=== PATIENT | female | born 1925 | race Caucasian/White ===

== ENCOUNTER → 2016-05-28 | Outpatient (CLI) | payer OTHER ==
[~2016-05-28] MED LIST: ACET1TAB84 PO; APR50 PO; ASPI81TA28 PO; CHLO0.1222 PO; DBT/5 PO; ENAL20TA PO; FRS/40 PO; GLYB5TAB8 PO; LANS30CA12 PO; LEVO50TA PO; MELA1TAB5 PO; METF-384 PO; METO25TA56 PO; MULT-506 PO; NTRS PO; PRLSR20 PO; SIMV10TA2 PO; TRAM-10 PO; WARF3TAB PO; WARF4TAB PO
--- NOTE | 2016-05-28 13:01 | DIAGNOSTIC IMAGING REPORT ---
ABDOMEN AND PELVIS CT WITH ORAL CONTRAST CT DOSE: 941.92 mGy.cm HISTORY: ABDOMINAL MASS AND PAIN, ORAL ONLY , IV CONTRAST ALLERGY TECHNIQUE: Multiaxial CT images of the abdomen and pelvis were performed following the use of oral contrast. COMPARISON STUDY: None. FINDINGS: No renal, ureteral or bladder calculi are present. There is no hydronephrosis. Mild symmetric perinephric infiltration is unchanged. Unenhanced images of the liver, spleen, left adrenal gland and pancreas are unremarkable. Stable 1 cm right benign adrenal adenoma. There is no biliary ductal dilatation status post cholecystectomy. There is no evidence for a bowel obstruction. There is a prior ventral hernia repair with mesh. No evidence for a ventral hernia. Note is made of extensive sigmoid diverticulosis without evidence for acute diverticulitis. No abdominal or pelvic lymphadenopathy is present. IMPRESSION: 1. Anterior abdominal wall mesh for prior ventral hernia repair. No evidence for ventral hernia at this time. 2. Sigmoid diverticulosis without evidence for acute diverticulitis. 3. No evidence for bowel obstruction. Electronically signed by: Yonathan Cr M.D. 05/28/2016 12:59 PM Dictated Date/Time: 05/28/2016 12:47 PM
== END | disposition home or self-care (01) ==
LOC: C.CTS 11:55
PROVIDERS: ATTEND Family Medicine
DX: R10.9 Unspecified abdominal pain (principal); R19.00 Intra-abdominal and pelvic swelling, mass and lump, unspecified site

== ENCOUNTER 2016-09-06 09:33 | Emergency (ER) | payer OTHER ==
[~2016-09-06] VITALS: Ht 165.1 cm; Wt 93.1 kg
[~2016-09-06 09:33] MED LIST changes: -CHLO0.1222 PO; -GLYB5TAB8 PO; -PRLSR20 PO
[2016-09-06 09:44] VITALS: TEMP 37.2; Ht 165.1 cm; Wt 93.1 kg
--- NOTE | 2016-09-06 10:21 | DIAGNOSTIC IMAGING REPORT ---
CT SCAN OF THE BRAIN WITHOUT IV CONTRAST CLINICAL HISTORY: Fall with head injury. COMPARISON STUDY: CT of the brain dated 05/13/2015. TECHNIQUE: Unenhanced axial CT scan of the brain is performed from the vertex to the skull base. CT DOSE: 537.48 mGy.cm FINDINGS: Brain parenchyma: There are age-related involutional changes noting moderate subcortical and periventricular microangiopathic change. There is no hemorrhage, mass effect, or evidence of acute territorial ischemia by CT criteria. Martins-white matter is preserved. No extra-axial fluid collection is seen. Ventricles, sulci, cisterns: Prominent secondary to involutional change. Intracranial vasculature: There is atherosclerotic calcification of the cavernous carotid and vertebral arteries. Calvarium: The skeletal structures are osteopenic. There is no depressed calvarial fracture. Soft tissues: There is a left frontal scalp hematoma. Sinuses and mastoids: The visualized paranasal sinuses are clear. The mastoid air cells are well pneumatized. Orbits: The bony orbits are grossly intact. There is evidence of bilateral ocular lens surgery. IMPRESSION: 1. There is no hemorrhage, mass effect, or evidence of acute territorial ischemia by CT criteria. 2. Left frontal scalp hematoma. No depressed calvarial fracture is seen. Electronically signed by: Jaspal Smith M.D. 09/06/2016 10:20 AM Dictated Date/Time: 09/06/2016 10:18 AM
[2016-09-06] MEDS ORDERED: PRLSR20 PO (10:29)
[2016-09-06] MEDS ORDERED: GLYB5TAB8 PO (10:29)
--- NOTE | 2016-09-06 10:48 | DIAGNOSTIC IMAGING REPORT ---
RIGHT HAND 3 VIEWS CLINICAL HISTORY: Fall from sitting. Right thumb pain. FINDINGS: 3 views of the right hand are obtained. No priors the skeletal structures are osteopenic. No fracture is clearly identified. There is age indeterminant and possibly chronic posttraumatic deformity noted in the distal radial metaphysis. Moderate degenerative narrowing is seen at the radiocarpal articulation. Advanced arthritic change is noted at the first carpometacarpal joint where there is bony sclerosis, overgrowth, and subluxation. Osteoarthritic change is also seen involving the intercarpal joints, the first metacarpophalangeal joint, and the interphalangeal joints. Soft tissue swelling is noted around the wrist. IMPRESSION: 1. There is soft tissue swelling seen around the wrist with no acute fracture clearly identified. If there is clinical concern for occult fracture consider short-term radiographic follow-up. 2. There is age indeterminant and possibly chronic posttraumatic deformity seen in the distal radial metaphysis. No discrete fracture line is identified. Correlate for point tenderness at this site. Electronically signed by: Jaspal Smith M.D. 09/06/2016 10:46 AM Dictated Date/Time: 09/06/2016 10:43 AM
[2016-09-06 11:07] VITALS: BP 174/103; PULSE 77; O2SAT 96
--- NOTE | 2016-09-06 15:28 | EMERGENCY ROOM VISIT NOTE ---
ED Visit Note First contact with patient: 09:41 I have personally evaluated this patient examined her and reviewed the pertinent labs and data. I have discussed the case with Orion Glasgow, the physician medical receptionist assistant and agree with the plan. Please refer to the PA note. This patient suffered a mechanical fall when the toilet broke. She had no symptoms prior to falling she has a hematoma large hematoma left forehead above the eye. She's had no change in vision. She had no loss consciousness. She has a normal neurologic exam. She has has pain along her right hand but x-rays the hand are unremarkable. She has no findings to suggest chest abdomen or pelvis/back trauma. She is on no blood thinners. CAT scan of her head is unremarkable she feels good and would like to home with discharge her home follow up with her doctor tomorrow and return if any new problems or concerns
--- NOTE | 2016-09-15 17:47 | EMERGENCY ROOM VISIT NOTE ---
History First contact with patient: 09:41 Chief Complaint: FALL Stated Complaint: FALL/WRIST PAIN History of Present Illness The patient is a 89 year old white female who presents to the Emergency Room with complaints of right thumb pain and a left forehead hematoma after falling at home today. She states her toilet seat broke and she fell off the toilet, striking her left forehead on a sink cabinet. She is unsure what happened to her hand. There was no loss of consciousness. This was a mechanical fall. She denies any chest pain, shortness of breath, dizziness, or headache at the time of the fall. She arrives by [facility] ambulance. No nausea or vomiting. Family members accompany her today. She denies any pain in her hips, knees, or ankles. No pain in her neck or back. No other complaints. No treatment yet. Review of Systems REVIEW OF SYSTEM: HEENT: No dizziness, visual problems, hearing loss, or tinnitus. There is no difficulty swallowing and no oral lesions are present. PULMONARY: No cough, shortness of breath, sputum production or hemoptysis. CARDIOVASCULAR: No chest pain, palpitations, shortness of breath or peripheral edema. GASTROINTESTINAL: No diarrhea, constipation, nausea, vomiting, or abdominal pain. GENITOURINARY: No dysuria, frequency, urgency or nocturia. NEUROLOGIC: No weakness, muscle tenderness, epilepsy or history of neurological problems. MUSCULOSKELETAL: No history of joint tenderness/swelling. Positive history of arthritis and arthralgias. SKIN: No rashes or lesions. PSYCHIATRIC: No history of depression or mental illness. ENDOCRINE: No history of abnormal hair growth. Positive history of diabetes and hypothyroidism Past Medical/Surgical History Medical Problems: (1) Chest pain (2) Hypertension (3) Pulmonary emboli Surgical Problems: (1) History of appendectomy (2) History of hysterectomy (3) Hx of cholecystectomy Family History Omitted due to age Social History Smoking Status: Never Smoker Smokeless Tobacco Use: No Alcohol Use: none Drug Use: none Marital Status: Housing Status: lives with family Occupation Status: retired Current/Historical Medications Scheduled Acetaminophen (Tylenol Arthritis Ext Rel), 650 MG PO TID Aspirin (Aspirin Ec), 81 MG PO HS Enalapril Maleate (Enalapril Maleate), 40 MG PO DAILY Furosemide (Lasix), 40 MG PO DAILY Glyburide (Micronase), 5 MG PO BID Levothyroxine Sodium (Synthroid), 50 MCG PO DAILY Metformin Hcl (Glucophage), 1,000 MG PO BID Metoprolol Tartrate (Lopressor) (Lopressor), 25 MG PO BID Multivitamin (Multivitamin), 1 TAB PO DAILY Omeprazole (Prilosec), 40 MG PO BID Simvastatin (Zocor), 10 MG PO QPM Scheduled PRN Melatonin (Kp Melatonin), 1 TAB PO HS PRN for Sleep Tramadol (Ultram), 50 MG PO Q6 PRN for Pain Allergies Coded Allergies: Sulfamethoxazole w/Trimethoprim (Verified Allergy, Severe, RASH, 09/06/16) fever, vasculitic type rash Iodinated Diagnostic Agents (Verified Allergy, Unknown, ANAPHYLAXIS, ) Iodine (Verified Allergy, Unknown, HX ALLERGY TO IODINATED CONTRAST MEDIA , 09/06/16) Morphine (Verified Adverse Reaction, Unknown, N/V, 09/06/16) Physical Exam Vital Signs Date Time Temp Pulse Resp B/P (MAP) Pulse Ox O2 Delivery O2 Flow Rate FiO2 09/06/16 11:07 77 18 174/103 96 09/06/16 09:44 37.2 84 18 187/65 96 Room Air Pain Rating (0-10): 4.0 Physical Exam Gen.: Well-developed, well-nourished, elderly white female, in no acute distress. Sitting on a bed. Alert and oriented. Skin: Warm and dry with fair turgor. No rashes or lesions. She has developing ecchymosis over the left eye brow. Small hematoma is present. Minor Erythema associated with an abrasion. No active bleeding. There is nothing to suture. She also has ecchymosis present around the base of her right thumb. No skin tears. The patient is not diaphoretic. HEENT: Normocephalic. Eyes PERRLA, EOMI. No conjunctiva or scleral injection. Ears TMs intact bilaterally with good light reflexes. No erythema or bulging. No hemotympanum. Canals are patent. Nares patent bilaterally without turbinate enlargement. No significant drainage. No epistaxis. Oropharynx without erythema or exudate. Uvula midline, oral mucosa moist. No lesions present. Heart: Heart RRR. No MGR. Peripheral pulses are 2+. Lungs: Lungs are clear to auscultation. No crackles rhonchi or wheezing. Good air movement. The patient is able to take a deep breath. Abdomen: Abdomen was inspected, auscultated, and palpated. Bowel sounds present x 4. Soft, nontender to palpation. No hepato-splenomegaly. No masses noted. No rebound, negative Rajput sign. No pain over McBurney's point. No CVA tenderness. Musculoskeletal: Patient has no discomfort with palpation over her cervical spine or thoracic spine. Supple motion of her shoulders and elbows. She has discomfort with palpation over the base of her thumb. No pain with palpation over the distal radius. Full range of motion of the wrist. Thumb circumduction and opposition does cause some minor discomfort at the base of the thumb. No specific pain over the anatomic snuffbox. Supple motion of her hips, knees, and ankles. No pain with log rolling of the hips. Neurologic: Cranial nerves II through XII are intact. Gross sensation is intact across the upper and lower extremities by soft touch Medical Decision & Procedures ER Provider Diagnostic Interpretation: CT scan imaging of her head was obtained today. This was read by radiology as negative for acute bleed or intracranial mass. Radiographic imaging of her right hand was also obtained. There is no evidence for fracture. This was read by radiology and reviewed by me. ED Course Patient and her family were educated regarding today's findings. Conservative care measures were discussed. CT scan imaging and radiographic imaging of the hand were obtained today. Patient was reassured that these are within normal limits. She will likely become more black and blue on her face. Apply cool compresses or ice packs to the face and hand as needed for comfort. Tylenol every 6 hours as needed for mild pain. Follow up with her PCP this week for reexamination. Return to the ED for any other concerns. Apply antibiotic ointment to her abrasion to prevent any infection. Patient was seen in conjunction with Dr. Posada, who also evaluated the patient and concurred with today's diagnosis and treatment plan. Medical Decision I do not suspect intracranial bleed, cranial fracture, cervical spine injury, long bone fracture, or cause of the fall to be related to arrhythmia, anemia, electrolyte abnormality, or dehydration. Impression Primary Impression: Head contusion Additional Impressions: Fall at home Right thumb pain Departure Information Dispostion Home / Self-Care Condition GOOD Forms HOME CARE DOCUMENTATION FORM, TYLENOL USE, IMPORTANT VISIT INFORMATION Patient Instructions My [facility] Additional Instructions Ice to any sore areas frequently over the next 3 days, then use moist heat Gentle motion daily to prevent stiffness Follow-up with your PCP as needed Return to the ED for any other concerns Apply triple antibiotic ointment to the forehead abrasion to prevent infection Problem Qualifiers Primary Impression: Head contusion Encounter type: initial encounter Contusion of head detail: periocular area Laterality: left Qualified Codes: S00.12XA - Contusion of left eyelid and periocular area, initial encounter Additional Impressions: Fall at home Encounter type: initial encounter Qualified Codes: W19.XXXA - Unspecified fall, initial encounter; Y92.099 - Unspecified place in other non-institutional residence as the place of occurrence of the external cause
== END 2016-09-06 11:07 | disposition home or self-care (01) ==
LOC: EDBD 09:33 → C.EDB 09:35
DX: S00.83XA Contusion of other part of head, initial encounter (principal); M79.644 Pain in right finger(s); I10 Essential (primary) hypertension; Z79.82 Long term (current) use of aspirin; Z79.84 Long term (current) use of oral hypoglycemic drugs; Z79.899 Other long term (current) drug therapy; Z86.711 Personal history of pulmonary embolism; W18.12XA Fall from or off toilet with subsequent striking against object, initial encounter; Y92.002 Bathroom of unspecified non-institutional (private) residence as the place of occurrence of the external cause

== ENCOUNTER 2016-10-04 16:44 | Emergency (ER) | payer OTHER ==
[~2016-10-04] VITALS: Ht 165.1 cm; Wt 92.0 kg
[~2016-10-04 16:44] MED LIST changes: -APR50 PO; -DBT/5 PO; +GLYB5TAB8 PO; -LANS30CA12 PO; -NTRS PO; +PRLSR20 PO; -WARF3TAB PO; -WARF4TAB PO
[2016-10-04 16:47] VITALS: TEMP 36.8; Ht 165.1 cm; Wt 92.0 kg
--- NOTE | 2016-10-04 17:43 | EMERGENCY ROOM VISIT NOTE ---
ED Visit Note First contact with patient: 16:57 CHIEF COMPLAINT: Bleeding tongue HISTORY OF PRESENT ILLNESS: This 89-year-old female patient presents to the emergency department name of a bleeding tongue since she bit her approximately 4 hours prior to arrival. The patient reports an initial significant amount of blood, however states within 1 hour, it had subsided. The patient states approximately 1 hour ago, she was eating candy, and while sucking on the piece of hard candy, she began tasting blood in her mouth. The patient states she has passed a few clots, and she has been unable to manage the bleeding. The patient reports throbbing pain and significant swelling on the right side of her tongue. She denies pus like drainage. The patient denies other injury or recent illness. The patient rates the pain 2/10. REVIEW OF SYSTEMS: A 6 system review of systems was performed with positives and pertinent negatives listed in the history of present illness. All other systems were reviewed and are negative. ALLERGIES: Iodine, morphine, Bactrim MEDICATIONS: Metformin, Synthroid, aspirin, metoprolol, enalapril maleate, furosemide, simvastatin, glyburide, omeprazole PMH: Diabetes, hypothyroidism, hypertension, heart failure, hyperlipidemia, GERD SOCIAL HISTORY: Lives locally with family. She denies drug, alcohol, tobacco use. PHYSICAL EXAM: VITALS: Vitals are noted on the nurse's note and reviewed by myself. Vital signs stable. GENERAL: This is an 89-year-old female, in no acute distress, nondiaphoretic, well-developed well-nourished. ORAL CAVITY: There is a 1-2mm puncture-type wound on the right side of the patient's tongue. No active bleeding at this time. There is a blood clot in place over the tongue. The patient is spitting up a mild amount of blood on examination. no avulsion or deformity or fracture to teeth. Posterior pharyngeal wall not erythematous and without exudate. EMERGENCY DEPARTMENT COURSE: She was seen and evaluated as above. I instructed the patient on using ice water to swish and spit. The patient then applied direct pressure with colds, moistened gauze. The bleeding did stop while in the emergency department. Discharge instructions were reviewed with the patient and her son at bedside. I did discuss the case with Dr. Magallanes, who is in agreement with the assessment and plan. The patient was discharged home in good condition. DIFFERENTIAL DIAGNOSIS: Laceration of tongue, puncture wound of tongue, fracture of tooth, infection, and others. DIAGNOSIS: Bleeding tongue DISCHARGE INSTRUCTIONS & TREATMENT: Please swish and spit with chlorhexidine mouth wash twice daily until the wound has healed. If you experience re-bleeding, apply ice or swish and spit with cold ice water. Apply pressure to the lesion on the tongue if you experience worsening bleeding. Keep foods lukewarm or cold. I do recommend you eat a soft diet over the next 2 -3 days until the lesion has healed. Follow-up with your primary care provider for further evaluation and management. Do not take aspirin or NSAIDs tonight to prevent rebleeding. Return to the emergency department for further evaluation if he began experiencing leading to his unable to be managed with the aforementioned treatment, vomiting blood, increased swelling, worsening pain, or drainage of pus. Problem List Medical Problems: (1) Chest pain Status: Chronic (2) Hypertension Status: Chronic (3) Pulmonary emboli Status: Resolved Surgical Problems: (1) History of appendectomy Status: Resolved (2) History of hysterectomy Status: Resolved (3) Hx of cholecystectomy Status: Resolved Current/Historical Medications Scheduled Acetaminophen (Tylenol Arthritis Ext Rel), 650 MG PO TID Aspirin (Aspirin Ec), 81 MG PO HS Chlorhexidine Gluconate (Mouth (Peridex), 15 ML PO BID Enalapril Maleate (Enalapril Maleate), 40 MG PO DAILY Furosemide (Lasix), 40 MG PO DAILY Glyburide (Micronase), 10 MG PO BID Levothyroxine Sodium (Synthroid), 50 MCG PO DAILY Metformin Hcl (Glucophage), 1,000 MG PO BID Metoprolol Tartrate (Lopressor) (Lopressor), 25 MG PO BID Multivitamin (Multivitamin), 1 TAB PO DAILY Omeprazole (Prilosec), 40 MG PO BID Simvastatin (Zocor), 10 MG PO QPM Allergies Coded Allergies: Sulfamethoxazole w/Trimethoprim (Verified Allergy, Severe, RASH, 09/06/16) fever, vasculitic type rash Iodinated Diagnostic Agents (Verified Allergy, Unknown, ANAPHYLAXIS, ) Iodine (Verified Allergy, Unknown, HX ALLERGY TO IODINATED CONTRAST MEDIA , 09/06/16) Morphine (Verified Adverse Reaction, Unknown, N/V, 09/06/16) Vital Signs Date Time Temp Pulse Resp B/P (MAP) Pulse Ox O2 Delivery O2 Flow Rate FiO2 10/04/16 16:47 36.8 94 94 Room Air Departure Information Impression Primary Impression: Laceration of tongue Dispostion Home / Self-Care Condition GOOD Prescriptions Chlorhexidine Gluconate (Mouth (PERIDEX) 0.12 % Odalis 15 ML PO BID for 30 Days, #946 ML Prov: Katerina Cool PA-C 10/04/16 Referrals Ronnie Vaughan M.D. (PCP) Patient Instructions My [facility] Additional Instructions Please swish and spit with chlorhexidine mouth wash twice daily until the wound has healed. If you experience re-bleeding, apply ice or swish and spit with cold ice water. Apply pressure to the lesion on the tongue if you experience worsening bleeding. Keep foods lukewarm or cold. I do recommend you eat a soft diet over the next 2 -3 days until the lesion has healed. Follow-up with your primary care provider for further evaluation and management. Do not take aspirin or NSAIDs tonight to prevent rebleeding. Return to the emergency department for further evaluation if he began experiencing leading to his unable to be managed with the aforementioned treatment, vomiting blood, increased swelling, worsening pain, or drainage of pus. Problem Qualifiers Primary Impression: Laceration of tongue Encounter type: initial encounter Qualified Codes: S01.512A - Laceration without foreign body of oral cavity, initial encounter
[2016-10-04] MEDS ORDERED: CHLO0.1222 PO (17:49)
[2016-10-04 18:21] VITALS: BP 137/87; PULSE 87; O2SAT 94
--- NOTE | 2016-10-06 15:54 | EMERGENCY ROOM VISIT NOTE ---
ED Visit Note First contact with patient: 16:57 HPI: bleeding tongue after biting it. PE: AFVSS, NAD NC/AT Small 0.25 cm superfical lac to right proximal, lateral aspect of tongue, without active bleeding. RRR, no murmurs CTAB Neuro: grossly intact Plan: No active bleeding. No repair required. pcp f/u. I reviewed the patient's past medical history, medications, and visit nursing notes. I discussed the case with the physician assistant signal maintainer, examined the patient, and agree with the findings and plan as documented in the physician assistants note. Problem List Medical Problems: (1) Chest pain Status: Chronic (2) Hypertension Status: Chronic (3) Pulmonary emboli Status: Resolved Surgical Problems: (1) History of appendectomy Status: Resolved (2) History of hysterectomy Status: Resolved (3) Hx of cholecystectomy Status: Resolved Current/Historical Medications Scheduled Acetaminophen (Tylenol Arthritis Ext Rel), 650 MG PO TID Aspirin (Aspirin Ec), 81 MG PO HS Chlorhexidine Gluconate (Mouth (Peridex), 15 ML PO BID Enalapril Maleate (Enalapril Maleate), 40 MG PO DAILY Furosemide (Lasix), 40 MG PO DAILY Glyburide (Micronase), 10 MG PO BID Levothyroxine Sodium (Synthroid), 50 MCG PO DAILY Metformin Hcl (Glucophage), 1,000 MG PO BID Metoprolol Tartrate (Lopressor) (Lopressor), 25 MG PO BID Multivitamin (Multivitamin), 1 TAB PO DAILY Omeprazole (Prilosec), 40 MG PO BID Simvastatin (Zocor), 10 MG PO QPM Allergies Coded Allergies: Sulfamethoxazole w/Trimethoprim (Verified Allergy, Severe, RASH, 09/06/16) fever, vasculitic type rash Iodinated Diagnostic Agents (Verified Allergy, Unknown, ANAPHYLAXIS, ) Iodine (Verified Allergy, Unknown, HX ALLERGY TO IODINATED CONTRAST MEDIA , 09/06/16) Morphine (Verified Adverse Reaction, Unknown, N/V, 09/06/16) Vital Signs Date Time Temp Pulse Resp B/P (MAP) Pulse Ox O2 Delivery O2 Flow Rate FiO2 10/04/16 18:21 87 22 137/87 94 10/04/16 16:47 36.8 94 94 Room Air Departure Information Impression Primary Impression: Laceration of tongue Dispostion Home / Self-Care Condition GOOD Prescriptions Chlorhexidine Gluconate (Mouth (PERIDEX) 0.12 % Odalis 15 ML PO BID for 30 Days, #946 ML Prov: Katerina Cool PA-C 10/04/16 Referrals Ronnie Vaughan M.D. (PCP) Forms WORK / SCHOOL INSTRUCTIONS, HOME CARE DOCUMENTATION FORM, IMPORTANT VISIT INFORMATION Patient Instructions My [facility] Additional Instructions Please swish and spit with chlorhexidine mouth wash twice daily until the wound has healed. If you experience re-bleeding, apply ice or swish and spit with cold ice water. Apply pressure to the lesion on the tongue if you experience worsening bleeding. Keep foods lukewarm or cold. I do recommend you eat a soft diet over the next 2 -3 days until the lesion has healed. Follow-up with your primary care provider for further evaluation and management. Do not take aspirin or NSAIDs tonight to prevent rebleeding. Return to the emergency department for further evaluation if he began experiencing leading to his unable to be managed with the aforementioned treatment, vomiting blood, increased swelling, worsening pain, or drainage of pus.
== END 2016-10-04 18:23 | disposition home or self-care (01) ==
LOC: C.EDB 16:45 → C.EDD 18:23
DX: S01.512A Laceration without foreign body of oral cavity, initial encounter (principal); W45.8XXA Other foreign body or object entering through skin, initial encounter; E11.9 Type 2 diabetes mellitus without complications; E03.9 Hypothyroidism, unspecified; I10 Essential (primary) hypertension; I50.9 Heart failure, unspecified; E78.5 Hyperlipidemia, unspecified; K21.9 Gastro-esophageal reflux disease without esophagitis

== ENCOUNTER 2017-05-17 18:49 | Emergency (ER) | payer OTHER ==
[~2017-05-17] VITALS: Ht 165.1 cm; Wt 92.0 kg
[~2017-05-17 18:49] MED LIST changes: -MELA1TAB5 PO; -TRAM-10 PO
[2017-05-17 19:05] VITALS: TEMP 36.9; Ht 165.1 cm; Wt 92.0 kg
[2017-05-17] MEDS ORDERED: KETOROLAC TROMETHAMINE 30 MG/ML VIAL IV STA (19:27)
[2017-05-17] MEDS ORDERED: ONDANSETRON INJ 2 MG/ML 2 ML VIAL IV STA (19:27)
[2017-05-17] MEDS ORDERED: SODIUM CHLORIDE 0.9% 1000ML 1,000 ML IV STA (19:27)
[2017-05-17 20:07] LABS: BASO % 0.6 %; BASO ABS # 0.05 K/uL (0-0.2); EOS % 4.1 %; EOS ABS # 0.33 K/uL (0-0.5); HEMATOCRIT 39.3 % (37-47); IG# 0.03 K/uL (0.00-0.02); LYMPH % 26.7 %; LYMPH ABS # 2.14 K/uL (1.2-3.4); MEAN CELL VOLUME 98.3 fL (80-100); MEAN CORPUSCULAR HEMOGLOBIN 32.5 pg (25-34); MEAN CORPUSCULAR HGB CONC 33.1 g/dl (32-36); MEAN PLATELET VOLUME 9.9 fL (7.4-10.4); MONO % 8.5 %; MONO ABS # 0.68 K/uL (0.11-0.59); NEUT % 59.7 %; PLATELET COUNT 216 K/uL (130-400); RED CELL DISTRIBUTION WIDTH CV 13.2 % (11.5-14.5); RED CELL DISTRIBUTION WIDTH SD 47.6 fL (36.4-46.3); WHITE BLOOD COUNT 8.03 K/uL (4.8-10.8)
--- NOTE | 2017-05-17 20:28 | DIAGNOSTIC IMAGING REPORT ---
ABDOMEN AND PELVIS CT WITHOUT CONTRAST CT DOSE: 1695.82 mGy.cm HISTORY: flank pain TECHNIQUE: Multiaxial CT images of the abdomen and pelvis were performed without the use of intravenous and oral contrast according to the standard department stone protocol. A dose lowering technique was utilized adhering to the principles of ALARA. COMPARISON STUDY: Abdomen and pelvis CT 05/25/1716. FINDINGS: Linear density at the lung bases favor subsegmental atelectasis. No pneumoperitoneum. No pneumatosis. There is again noted a ventral abdominal wall mesh. No evidence for recurrent abdominal wall hernia. Small left iliopsoas bursa remains unchanged. Severe spinal canal narrowing within the lumbar spine. Cholecystectomy. The unenhanced liver, spleen, and pancreas are unremarkable. Stable 1 cm right adrenal gland nodule. There is a punctate stone within the lower pole of the right kidney. No left renal calculi. Mild bilateral perinephric edema, unchanged. No ureteral stones. No hydronephrosis. The bladder is unremarkable. Prior hysterectomy. Colonic diverticulosis. Suboptimal evaluation for bowel pathology due to the lack of intravenous and oral contrast. However, there is no definite bowel wall thickening or obstruction. IMPRESSION: 1. Right-sided nephrolithiasis. No ureteral stones. No hydronephrosis. 2. Colonic diverticulosis. 3. No definite bowel wall thickening or obstruction. 4. Additional chronic findings as described above. Electronically signed by: Yonathan Cr M.D. 05/17/2017 8:26 PM Dictated Date/Time: 05/17/2017 8:17 PM
[2017-05-17 20:47] LABS: ALBUMIN 3.6 gm/dl (3.4-5.0); CALCIUM 9.1 mg/dl (8.5-10.1); CREATININE 1.13 mg/dl (0.60-1.20); POTASSIUM 4.5 mmol/L (3.5-5.1); TOTAL PROTEIN 6.9 gm/dl (6.4-8.2)
[2017-05-17] MEDS ORDERED: CEFTRIAXONE SOD INJ 1 GM ADDVIAL IV STA (21:31)
[2017-05-17] MEDS ORDERED: CIPROFLOXACIN 500 MG TAB PO STA (22:17)
[2017-05-17] MEDS ORDERED: CIPR-255 PO (22:23)
--- NOTE | 2017-05-17 22:23 | EMERGENCY ROOM VISIT NOTE ---
History Report prepared by Danyel: Chelsey Lane Under the Supervision of: Dr. Alexander Mtz D.O. First contact with patient: 19:20 Chief Complaint: FLANK PAIN Stated Complaint: PAIN IN R SIDE/BACK History of Present Illness The patient is an 89 year old female who presents to the Emergency Room with complaints of intermittent left flank pain starting 2 weeks ago. The pain became more continuous today. It wraps around to the front where the incision from her previous kidney stone is located. She currently rates her discomfort as a 6/10 in severity. The pain does not worsen with movement. She has had difficulty sleeping from the pain. She has tried taking Tylenol to no significant relief. The patient has been nauseous and dizzy with room spinning intermittently. She denies any vomiting or new weakness. She has some swelling to her legs at baseline. Source of History: patient Onset: 2 weeks ago Position: other (left flank) Symptom Intensity: 6/10 Quality: other (pain) Timing: other (persistent) Associated Symptoms: + nausea, No vomiting, No weakness Note: Pt reports dizziness. Review of Systems See HPI for pertinent positives & negatives. A total of 10 systems reviewed and were otherwise negative. Past Medical & Surgical Medical Problems: (1) Chest pain (2) Hypertension (3) Pulmonary emboli Surgical Problems: (1) History of appendectomy (2) History of hysterectomy (3) Hx of cholecystectomy Family History Omitted due to age Social History Smoking Status: Never Smoker Alcohol Use: none Drug Use: none Marital Status: Occupation Status: retired Current/Historical Medications Scheduled Aspirin (Aspirin Ec), 81 MG PO HS Enalapril Maleate (Enalapril Maleate), 40 MG PO DAILY Furosemide (Lasix), 40 MG PO DAILY Glyburide (Micronase), 5 MG PO BID Levothyroxine Sodium (Synthroid), 50 MCG PO DAILY Metformin Hcl (Glucophage), 1,000 MG PO BID Metoprolol Tartrate (Lopressor) (Lopressor), 25 MG PO BID Multivitamin (Multivitamin), 1 TAB PO DAILY Omeprazole (Prilosec), 40 MG PO BID Simvastatin (Zocor), 10 MG PO QPM Scheduled PRN Acetaminophen (Tylenol Arthritis Ext Rel), 650 MG PO TID PRN for Pain Allergies Coded Allergies: Sulfamethoxazole w/Trimethoprim (Verified Allergy, Severe, RASH, 01/05/17) fever, vasculitic type rash Iodinated Diagnostic Agents (Verified Allergy, Unknown, ANAPHYLAXIS, 01/05) Iodine (Verified Allergy, Unknown, HX ALLERGY TO IODINATED CONTRAST MEDIA , 01/05/17) Morphine (Verified Adverse Reaction, Unknown, N/V, 01/05/17) Physical Exam Vital Signs Date Time Temp Pulse Resp B/P (MAP) Pulse Ox O2 Delivery O2 Flow Rate FiO2 05/17/17 21:48 88 20 158/64 93 Room Air 05/17/17 20:24 89 20 191/87 93 Room Air 05/17/17 19:05 36.9 87 16 186/78 94 Room Air Physical Exam CONSTITUTIONAL/VITAL SIGNS: Reviewed / noted above. GENERAL: Non-toxic in appearance. INTEGUMENTARY: Warm, dry, and [place]. HEAD: Normocephalic. EYES: without scleral icterus or trauma. ENT/OROPHARYNX: clear and moist. LYMPHADENOPATHY/NECK: Is supple without lymphadenopathy or meningismus. RESPIRATORY: Lungs clear and equal. CARDIOVASCULAR: Regular rate and rhythm. GI/ABDOMEN: Soft. LLQ tenderness. No organomegaly or pulsatile mass. No rebound or guarding. Normal bowel sounds. EXTREMITIES: Warm and well perfused. BACK: Left CVA tenderness. NEUROLOGICAL: Intact without focal deficits. PSYCHIATRIC: normal affect. MUSCULOSKELETAL: Normally developed with good muscle tone. Medical Decision & Procedures ER Provider Diagnostic Interpretation: Radiology results as stated below per my review and radiologist interpretation: ABDOMEN AND PELVIS CT WITHOUT CONTRAST CT DOSE: 1695.82 mGy.cm HISTORY: flank pain TECHNIQUE: Multiaxial CT images of the abdomen and pelvis were performed without the use of intravenous and oral contrast according to the standard department stone protocol. A dose lowering technique was utilized adhering to the principles of ALARA. COMPARISON STUDY: Abdomen and pelvis CT 05/25/1716. FINDINGS: Linear density at the lung bases favor subsegmental atelectasis. No pneumoperitoneum. No pneumatosis. There is again noted a ventral abdominal wall mesh. No evidence for recurrent abdominal wall hernia. Small left iliopsoas bursa remains unchanged. Severe spinal canal narrowing within the lumbar spine. Cholecystectomy. The unenhanced liver, spleen, and pancreas are unremarkable. Stable 1 cm right adrenal gland nodule. There is a punctate stone within the lower pole of the right kidney. No left renal calculi. Mild bilateral perinephric edema, unchanged. No ureteral stones. No hydronephrosis. The bladder is unremarkable. Prior hysterectomy. Colonic diverticulosis. Suboptimal evaluation for bowel pathology due to the lack of intravenous and oral contrast. However, there is no definite bowel wall thickening or obstruction. IMPRESSION: 1. Right-sided nephrolithiasis. No ureteral stones. No hydronephrosis. 2. Colonic diverticulosis. 3. No definite bowel wall thickening or obstruction. 4. Additional chronic findings as described above. Electronically signed by: Yonathan Cr M.D. 05/17/2017 8:26 PM Dictated Date/Time: 05/17/2017 8:17 PM Laboratory Results 05/17/17 19:45 Red Blood Count 4.00, Mean Corpuscular Volume 98.3, Mean Corpuscular Hemoglobin 32.5, Mean Corpuscular Hemoglobin Concent 33.1, Mean Platelet Volume 9.9, Neutrophils (%) (Auto) 59.7, Lymphocytes (%) (Auto) 26.7, Monocytes (%) (Auto) 8.5, Eosinophils (%) (Auto) 4.1, Basophils (%) (Auto) 0.6, Neutrophils # (Auto) 4.80, Lymphocytes # (Auto) 2.14, Monocytes # (Auto) 0.68, Eosinophils # (Auto) 0.33, Basophils # (Auto) 0.05 05/17/17 19:45 Test 05/17/17 19:45 05/17/17 20:40 White Blood Count 8.03 K/uL (4.8-10.8) Red Blood Count 4.00 M/uL (4.2-5.4) Hemoglobin 13.0 g/dL (12.0-16.0) Hematocrit 39.3 % (37-47) Mean Corpuscular Volume 98.3 fL (80-100) Mean Corpuscular Hemoglobin 32.5 pg (25-34) Mean Corpuscular Hemoglobin Concent 33.1 g/dl (32-36) Platelet Count 216 K/uL (130-400) Mean Platelet Volume 9.9 fL (7.4-10.4) Neutrophils (%) (Auto) 59.7 % Lymphocytes (%) (Auto) 26.7 % Monocytes (%) (Auto) 8.5 % Eosinophils (%) (Auto) 4.1 % Basophils (%) (Auto) 0.6 % Neutrophils # (Auto) 4.80 K/uL (1.4-6.5) Lymphocytes # (Auto) 2.14 K/uL (1.2-3.4) Monocytes # (Auto) 0.68 K/uL (0.11-0.59) Eosinophils # (Auto) 0.33 K/uL (0-0.5) Basophils # (Auto) 0.05 K/uL (0-0.2) RDW Standard Deviation 47.6 fL (36.4-46.3) RDW Coefficient of Variation 13.2 % (11.5-14.5) Immature Granulocyte % (Auto) 0.4 % Immature Granulocyte # (Auto) 0.03 K/uL (0.00-0.02) Anion Gap 8.0 mmol/L (3-11) Est Creatinine Clear Calc Drug Dose 37.8 ml/min Estimated GFR () 49.9 Estimated GFR (Non- 43.1 BUN/Creatinine Ratio 31.1 (10-20) Calcium Level 9.1 mg/dl (8.5-10.1) Total Bilirubin 0.6 mg/dl (0.2-1) Direct Bilirubin 0.2 mg/dl (0-0.2) Aspartate Amino Transf (AST/SGOT) 16 U/L (15-37) Alanine Aminotransferase (ALT/SGPT) 28 U/L (12-78) Alkaline Phosphatase 64 U/L (45-117) Total Protein 6.9 gm/dl (6.4-8.2) Albumin 3.6 gm/dl (3.4-5.0) Lipase 311 U/L (73-393) Urine Color YELLOW Urine Appearance CLOUDY (CLEAR) Urine pH 5.0 (4.5-7.5) Urine Specific [place] 1.024 (1.000-1.030) Urine Protein 2+ (NEG) Urine Glucose (UA) NEG (NEG) Urine Ketones NEG (NEG) Urine Occult Blood NEG (NEG) Urine Nitrite POS (NEG) Urine Bilirubin NEG (NEG) Urine Urobilinogen NEG (NEG) Urine Leukocyte Esterase SMALL (NEG) Urine WBC (Auto) 10-30 /hpf (0-5) Urine RBC (Auto) 5-10 /hpf (0-4) Urine Hyaline Casts (Auto) 1-5 /lpf (0-5) Urine Epithelial Cells (Auto) >30 /lpf (0-5) Urine Bacteria (Auto) 4+ (NEG) Laboratory results as stated above per my review. Medications Administered Medications (Trade) Dose Ordered Sig/Sergio Route Start Time Stop Time Status Last Admin Dose Admin Sodium Chloride 1,000 ml @ 999 mls/hr Q1H1M STAT IV 05/17/17 19:27 05/17/17 20:27 DC 05/17/17 19:53 999 MLS/HR Ondansetron HCl (Zofran Inj) 4 mg NOW STAT IV 05/17/17 19:27 05/17/17 19:29 DC 05/17/17 19:53 4 MG Ketorolac Tromethamine (Toradol Inj) 15 mg NOW STAT IV 05/17/17 19:27 05/17/17 19:29 DC 05/17/17 19:53 15 MG Ceftriaxone Sodium (Rocephin Inj) 1 gm NOW STAT IV 05/17/17 21:31 05/17/17 21:32 DC 05/17/17 21:46 1 GM ED Course 1921: Previous medical records were reviewed. The patient was evaluated in room C5. A complete history and physical examination was performed. 1926: Toradol Inj 15 mg IV, Zofran Inj 4 mg IV, Sodium Chloride 1000 ml @ 999 mls/hr IV. 2130: Rocephin Inj 1 gm IV. 2219: On reevaluation, the patient is resting comfortably. I discussed the results and findings with the patient. She verbalized agreement of the treatment plan. She was discharged home. Medical Decision Differential considered: pancreatitis, hepatitis, or acute cholecystitis, AAA, UTI, pyelonephritis, kidney stones, appendicitis, diverticulitis, shingles, bowel obstruction mesenteric ischemia, intussusception,hernia. This is an 89-year-old female who presents to the ED with a chief complaint of left-sided flank pain. The patient states that she has had the symptoms off and on for the past couple of weeks although today it has become more continuous. She reports associated nausea as well as some dizziness but no vomiting. She denies anything making it better or worse. It does not appear to be worsened by movement. Her physical exam reveals an elevated blood pressure. This could be related to discomfort. The patient has tenderness to palpation of left lower quadrant as well as some left lower CVA tenderness. CT scan of the abdomen pelvis reveals no acute pathology. CBC is normal, BUN is 35 and complete metabolic panel was unremarkable. Urine suggest infection. The patient was treated with IV Toradol, IV Zofran and IV fluids. She was given IV Rocephin and p.o. Cipro. She will be discharged on Cipro. She is felt to be stable for discharge. Medication Reconcilliation Current Medication List: was personally reviewed by me Blood Pressure Screening Patient's blood pressure: Elevated blood pressure Blood pressure disposition: Elevated BP felt to be situational Impression Primary Impression: UTI (urinary tract infection) Scribe Attestation The scribe's documentation has been prepared under my direction and personally reviewed by me in its entirety. I confirm that the note above accurately reflects all work, treatment, procedures, and medical decision making performed by me. Departure Information Dispostion Home / Self-Care Prescriptions Ciprofloxacin Hcl (CIPRO) 500 Mg Tab 500 MG PO BID, #14 TAB Prov: Alexander Mtz D.O. 05/17/17 Referrals Ronnie Vaughan M.D. (PCP) Patient Instructions [facility] Additional Instructions Cipro as prescribed for UTI. Follow-up with your doctor for further care and evaluation in 1-2 days. Return to the emergency department for worsening or new symptoms or any concerns. You have been examined and treated today on an emergency basis only. This is not a substitute for, or an effort to provide, complete comprehensive medical care. It is impossible to recognize and treat all injuries or illnesses in a single emergency department visit. It is therefore important that you follow up closely with your doctor. Call as soon as possible for an appointment.
[2017-05-17 22:44] VITALS: BP 160/98; PULSE 81; O2SAT 93
== END 2017-05-17 22:47 | disposition home or self-care (01) ==
LOC: C.EDB 18:50 → C.EDC 22:47
DX: N39.0 Urinary tract infection, site not specified (principal); I10 Essential (primary) hypertension; Z86.711 Personal history of pulmonary embolism; Z87.442 Personal history of urinary calculi; Z79.82 Long term (current) use of aspirin; Z79.84 Long term (current) use of oral hypoglycemic drugs; Z88.2 Allergy status to sulfonamides; Z91.041 Radiographic dye allergy status; Z88.5 Allergy status to narcotic agent; Z88.6 Allergy status to analgesic agent

== ENCOUNTER 2017-09-29 19:22 | Emergency (ER) | payer OTHER ==
[~2017-09-29] VITALS: Ht 162.6 cm; Wt 94.0 kg
[~2017-09-29 19:22] MED LIST changes: +CIPR-255 PO
[2017-09-29 19:26] VITALS: TEMP 36.7; Ht 162.6 cm; Wt 94.0 kg
[2017-09-29] MEDS ORDERED: ONDANSETRON INJ 2 MG/ML 2 ML VIAL IV STA (19:32)
[2017-09-29] MEDS ORDERED: HYDROmorphone INJ 0.5 MG/0.5 ML SYR IV STA (19:32)
[2017-09-29] MEDS ORDERED: SODIUM CHLORIDE 0.9% 500ML 500 ML IV STA (19:32)
[2017-09-29 19:59] LABS: BASO % 0.2 %; BASO ABS # 0.02 K/uL (0-0.2); EOS % 2.6 %; EOS ABS # 0.21 K/uL (0-0.5); HEMATOCRIT 42.6 % (37-47); HEMOGLOBIN 14.3 g/dL (12.0-16.0); IG# 0.01 K/uL (0.00-0.02); LYMPH % 19.9 %; MEAN CELL VOLUME 97.7 fL (80-100); MEAN CORPUSCULAR HEMOGLOBIN 32.8 pg (25-34); MEAN CORPUSCULAR HGB CONC 33.6 g/dl (32-36); MEAN PLATELET VOLUME 9.8 fL (7.4-10.4); MONO % 6.3 %; MONO ABS # 0.51 K/uL (0.11-0.59); NEUT % 70.9 %; NEUT ABS # 5.69 K/uL (1.4-6.5); PLATELET COUNT 228 K/uL (130-400); RED CELL DISTRIBUTION WIDTH CV 13.7 % (11.5-14.5); RED CELL DISTRIBUTION WIDTH SD 48.8 fL (36.4-46.3); WHITE BLOOD COUNT 8.04 K/uL (4.8-10.8)
[2017-09-29 20:21] LABS: ALBUMIN 4.2 gm/dl (3.4-5.0); CALCIUM 9.6 mg/dl (8.5-10.1); CREATININE 1.17 mg/dl (0.60-1.20); POTASSIUM 4.7 mmol/L (3.5-5.1); TOTAL PROTEIN 7.4 gm/dl (6.4-8.2)
--- NOTE | 2017-09-29 20:24 | DIAGNOSTIC IMAGING REPORT ---
PELVIS 1 OR 2 VIEW ROUTINE CLINICAL HISTORY: Right hip pain. COMPARISON STUDY: None. FINDINGS: No fracture or dislocation within the pelvis or hips. The sacrum appears intact. 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 Metallic sutures are also seen within the abdomen. There are also moderate degenerative changes within the bilateral sacroiliac joints. IMPRESSION: 1. No fracture or dislocation within the pelvis or hips. 2. Mild to moderate osteoarthritis as described above. Electronically signed by: Yonathan Cr M.D. 09/29/2017 8:22 PM Dictated Date/Time: 09/29/2017 8:20 PM
--- NOTE | 2017-09-29 20:30 | DIAGNOSTIC IMAGING REPORT ---
LUMBAR SPINE CT CT DOSE: 669.10 mGy.cm HISTORY: lower back pain TECHNIQUE: Multiaxial CT images of the lumbar spine were performed and reformatted in the sagittal and coronal plane without the use of contrast. A dose lowering technique was utilized adhering to the principles of ALARA. COMPARISON: Lumbar spine CT 05/13/2015. FINDINGS: No fracture or subluxation. Mild disc space narrowing at L2-L3 and L4-L5, unchanged. There are endplate osteophytes seen throughout the lumbar spine. Moderate to severe facet osteoarthritis most pronounced at the lower lumbar spine is again noted. The sacrum appears intact. Paraspinal soft tissues are unremarkable. Severe central canal narrowing at L2-L3, L3-L4, L4-L5, unchanged. This is due to the disc bulges and ligamentum/facet hypertrophy. IMPRESSION: 1. No fracture or subluxation within the lumbar spine. 2. Advanced degenerative changes as described above. This is not significantly changed. Electronically signed by: Yonathan Cr M.D. 09/29/2017 8:29 PM Dictated Date/Time: 09/29/2017 8:23 PM
--- NOTE | 2017-09-29 20:57 | DIAGNOSTIC IMAGING REPORT ---
RIGHT LOWER EXTREMITY VENOUS DOPPLER HISTORY: Right leg pain. COMPARISON STUDY: Venous Doppler 07/12/2014. FINDINGS: There is normal compressibility, flow, and augmentation within the right lower extremity deep venous system. IMPRESSION: No DVT within the right lower extremity Electronically signed by: Yonathan Cr M.D. 09/29/2017 8:56 PM Dictated Date/Time: 09/29/2017 8:56 PM
[2017-09-29] MEDS ORDERED: OXYC-737 PO (21:13)
[2017-09-29] MEDS ORDERED: OXYCODONE IR HOME PACK PO ONE (21:15)
[2017-09-29 21:58] VITALS: BP 162/72; PULSE 78; O2SAT 94
--- NOTE | 2017-09-30 00:18 | EMERGENCY ROOM VISIT NOTE ---
History Report prepared by Danyel: Albert Carrero Under the Supervision of: Dr. Reid Alonzo D.O. First contact with patient: 19:25 Chief Complaint: PAIN (GENERALIZED) Stated Complaint: KNEE PAIN TO HIP History of Present Illness The patient is a 89 year old female who presents to the Emergency Room with complaints of constant right lower extremity pain that began three days ago. She rates her pain as a 10/10 in severity. The patient states that three months ago she heard a popping noise when she was moving her legs around. She reports that after, her left lower extremity became painful. The patient states that her left lower extremity pain has resolved. She reports that within the last three days, she noticed her right lower extremity has been painful. The patient states that the pain radiates into her lower back and lower abdomen. The patient states she has not been able to move much since it worsens the pain. She notes the pain is the worst on the medial aspect of her right thigh, back and tracking down through her right gluteus down the back of. The patient denies similar symptoms in the past and new numbness in leg. She reports a history of neuropathy, appendectomy, and cholecystectomy. The patient states she had two bowel movements today. Source of History: patient Onset: three days ago Position: leg (right) Symptom Intensity: 10/10 Timing: constant Modifying Factors (Worsening): movement Associated Symptoms: + abdominal pain, + back pain, No numbness Review of Systems See HPI for pertinent positives & negatives. A total of 10 systems reviewed and were otherwise negative. Past Medical & Surgical Medical Problems: (1) Chest pain (2) Hypertension (3) Pulmonary emboli Surgical Problems: (1) History of appendectomy (2) History of hysterectomy (3) Hx of cholecystectomy Family History Omitted due to age Social History Smoking Status: Never Smoker Alcohol Use: none Drug Use: none Marital Status: Occupation Status: retired Current/Historical Medications Scheduled Aspirin (Aspirin Ec), 81 MG PO HS Enalapril Maleate (Enalapril Maleate), 40 MG PO DAILY Furosemide (Lasix), 40 MG PO DAILY Glyburide (Micronase), 5 MG PO BID Levothyroxine Sodium (Synthroid), 50 MCG PO DAILY Metformin Hcl (Glucophage), 1,000 MG PO BID Metoprolol Tartrate (Lopressor) (Lopressor), 25 MG PO BID Multivitamin (Multivitamin), 1 TAB PO DAILY Omeprazole (Prilosec), 40 MG PO BID Simvastatin (Zocor), 10 MG PO QPM Scheduled PRN Acetaminophen (Tylenol Arthritis Ext Rel), 650 MG PO TID PRN for Pain Oxycodone Immediate Rel Tab (Roxicodone Ir), 5 MG PO Q6H PRN for Pain Allergies Coded Allergies: Sulfamethoxazole w/Trimethoprim (Verified Allergy, Severe, RASH, 09/29/17) fever, vasculitic type rash Iodinated Diagnostic Agents (Verified Allergy, Unknown, ANAPHYLAXIS, ) Iodine (Verified Allergy, Unknown, HX ALLERGY TO IODINATED CONTRAST MEDIA , 09/29/17) Morphine (Verified Adverse Reaction, Unknown, N/V, 09/29/17) Physical Exam Vital Signs Date Time Temp Pulse Resp B/P (MAP) Pulse Ox O2 Delivery O2 Flow Rate FiO2 09/29/17 21:58 78 20 162/72 94 09/29/17 21:45 91 20 174/70 96 Room Air 09/29/17 21:09 92 186/86 93 Room Air 09/29/17 19:26 36.7 97 20 165/80 94 Room Air Physical Exam GENERAL: Laying in bed, minimal distress, nontoxic. EYE EXAM: normal conjunctiva. OROPHARYNX: no exudate, no erythema, lips, buccal mucosa, and tongue normal and mucous membranes are moist NECK: supple, no nuchal rigidity, no adenopathy, non-tender LUNGS: Clear to auscultation. Normal chest wall mechanics HEART: no murmurs, S1 normal and S2 normal ABDOMEN: abdomen soft, non-tender, normo-active bowel sounds, no masses, no rebound or guarding. BACK: Back is symmetrical on inspection and there is no deformity, no midline tenderness, no CVA tenderness. Tenderness to lower lumbar/right gluteus tracking down to back of right leg. SKIN: no rashes and no bruising UPPER EXTREMITIES: upper extremities are grossly normal. LOWER EXTREMITIES: No pitting edema. Flexion and extension of the hips, knees, ankles, and EHL 5/5 bilaterally. Gross sensation is intact. DPs are 2/4 bilateral. Patellar and Achilles reflexes unable to be obtained bilaterally NEURO EXAM: Normal sensorium, cranial nerves II-XII grossly intact, normal speech, no gross weakness of arms. Medical Decision & Procedures ER Provider Diagnostic Interpretation: Radiology results as stated below per my review and the radiologist's interpretation: PELVIS 1 OR 2 VIEW ROUTINE CLINICAL HISTORY: Right hip pain. COMPARISON STUDY: None. FINDINGS: No fracture or dislocation within the pelvis or hips. The sacrum appears intact. 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 Metallic sutures are also seen within the abdomen. There are also moderate degenerative changes within the bilateral sacroiliac joints. IMPRESSION: 1. No fracture or dislocation within the pelvis or hips. 2. Mild to moderate osteoarthritis as described above. Electronically signed by: Yonathan Cr M.D. 09/29/2017 8:22 PM Dictated Date/Time: 09/29/2017 8:[address] DOSE: 669.10 mGy.cm HISTORY: lower back pain TECHNIQUE: Multiaxial CT images of the lumbar spine were performed and reformatted in the sagittal and coronal plane without the use of contrast. A dose lowering technique was utilized adhering to the principles of ALARA. COMPARISON: Lumbar spine CT 05/13/2015. FINDINGS: No fracture or subluxation. Mild disc space narrowing at L2-L3 and L4-L5, unchanged. There are endplate osteophytes seen throughout the lumbar spine. Moderate to severe facet osteoarthritis most pronounced at the lower lumbar spine is again noted. The sacrum appears intact. Paraspinal soft tissues are unremarkable. Severe central canal narrowing at L2-L3, L3-L4, L4-L5, unchanged. This is due to the disc bulges and ligamentum/facet hypertrophy. IMPRESSION: 1. No fracture or subluxation within the lumbar spine. 2. Advanced degenerative changes as described above. This is not significantly changed. Electronically signed by: Yonathan Cr M.D. 09/29/2017 8:29 PM Dictated Date/Time: 09/29/2017 8:23 PM RIGHT LOWER EXTREMITY VENOUS DOPPLER HISTORY: Right leg pain. COMPARISON STUDY: Venous Doppler 07/12/2014. FINDINGS: There is normal compressibility, flow, and augmentation within the right lower extremity deep venous system. IMPRESSION: No DVT within the right lower extremity Electronically signed by: Yonathan Cr M.D. 09/29/2017 8:56 PM Dictated Date/Time: 09/29/2017 8:56 PM Laboratory Results 09/29/17 19:46 Red Blood Count 4.36, Mean Corpuscular Volume 97.7, Mean Corpuscular Hemoglobin 32.8, Mean Corpuscular Hemoglobin Concent 33.6, Mean Platelet Volume 9.8, Neutrophils (%) (Auto) 70.9, Lymphocytes (%) (Auto) 19.9, Monocytes (%) (Auto) 6.3, Eosinophils (%) (Auto) 2.6, Basophils (%) (Auto) 0.2, Neutrophils # (Auto) 5.69, Lymphocytes # (Auto) 1.60, Monocytes # (Auto) 0.51, Eosinophils # (Auto) 0.21, Basophils # (Auto) 0.02 09/29/17 19:46 Test 09/29/17 19:46 White Blood Count 8.04 K/uL (4.8-10.8) Red Blood Count 4.36 M/uL (4.2-5.4) Hemoglobin 14.3 g/dL (12.0-16.0) Hematocrit 42.6 % (37-47) Mean Corpuscular Volume 97.7 fL (80-100) Mean Corpuscular Hemoglobin 32.8 pg (25-34) Mean Corpuscular Hemoglobin Concent 33.6 g/dl (32-36) Platelet Count 228 K/uL (130-400) Mean Platelet Volume 9.8 fL (7.4-10.4) Neutrophils (%) (Auto) 70.9 % Lymphocytes (%) (Auto) 19.9 % Monocytes (%) (Auto) 6.3 % Eosinophils (%) (Auto) 2.6 % Basophils (%) (Auto) 0.2 % Neutrophils # (Auto) 5.69 K/uL (1.4-6.5) Lymphocytes # (Auto) 1.60 K/uL (1.2-3.4) Monocytes # (Auto) 0.51 K/uL (0.11-0.59) Eosinophils # (Auto) 0.21 K/uL (0-0.5) Basophils # (Auto) 0.02 K/uL (0-0.2) RDW Standard Deviation 48.8 fL (36.4-46.3) RDW Coefficient of Variation 13.7 % (11.5-14.5) Immature Granulocyte % (Auto) 0.1 % Immature Granulocyte # (Auto) 0.01 K/uL (0.00-0.02) Anion Gap 10.0 mmol/L (3-11) Est Creatinine Clear Calc Drug Dose 36.2 ml/min Estimated GFR () 47.8 Estimated GFR (Non- 41.3 BUN/Creatinine Ratio 41.5 (10-20) Calcium Level 9.6 mg/dl (8.5-10.1) Total Bilirubin 0.6 mg/dl (0.2-1) Direct Bilirubin 0.2 mg/dl (0-0.2) Aspartate Amino Transf (AST/SGOT) 16 U/L (15-37) Alanine Aminotransferase (ALT/SGPT) 22 U/L (12-78) Alkaline Phosphatase 50 U/L (45-117) Total Protein 7.4 gm/dl (6.4-8.2) Albumin 4.2 gm/dl (3.4-5.0) Lipase 338 U/L (73-393) Laboratory results per my review. Medications Administered Medications (Trade) Dose Ordered Sig/Sergio Route Start Time Stop Time Status Last Admin Dose Admin Sodium Chloride 500 ml @ 999 mls/hr Q31M STAT IV 09/29/17 19:32 09/29/17 20:02 DC 09/29/17 20:00 999 MLS/HR Ondansetron HCl (Zofran Inj) 4 mg NOW STAT IV 09/29/17 19:32 09/29/17 19:34 DC 09/29/17 20:01 4 MG Hydromorphone HCl (Dilaudid Inj) 0.5 mg NOW STAT IV 09/29/17 19:32 09/29/17 19:34 DC 09/29/17 20:01 0.5 MG Oxycodone HCl (Roxicodone Immediate Rel 5MG Home Pack) 1 homepack UD ONCE PO 09/29/17 21:15 09/29/17 21:16 DC 09/29/17 21:51 1 HOMEPACK ED Course ED COURSE: Vital signs were reviewed and showed hypertension The patients medical record was reviewed The above diagnostic studies were performed and reviewed. ED treatments and interventions as stated above. 1925: The patient was evaluated in room A09B. A complete history and physical examination was performed. 1931: Ordered Dilaudid Injection 0.5 mg IV, Zofran Injection 4 mg IV, Sodium Chloride 500 ml @ 999 mls/hr IV. 2106: Upon reevaluation, the patient is resting comfortably. I discussed my findings with the patient and she understands and agrees with the treatment plan. Based on the patients age, coexisting illnesses, exam and lab findings the decision to treat as an outpatient was made. The patient remained stable while under my care. The patient appeared well at the time of discharge. 2114: Ordered Oxycodone HCl 1 homepack PO. Medical Decision Differential diagnoses includes but is not limited to lumbar radiculopathy, kidney stone, muscle strain, facture, cauda equina, mass, and disc herniation. Patient is an 89-year-old female who presents the ER for right leg pain. Pain is in her right proximal femur. She does have pain in her lower lumbar tract down through right gluteus goes down the back of her right thigh. She also has pain on the anterior aspect. She is neurovascularly intact. Good pulses. Duplex was negative. CT of the lumbar spine was negative. X-rays of the pelvis show no obvious fracture. Patient was given IV narcotics. She did drop her pulse ox slightly. She was monitored until this increase. She was discharged follow-up with [facility] as an outpatient. Discussed with Pt concerning signs and symptoms to watch out for. Pt was instructed to follow up with their PCP and discussed with the patient their option to return to the ED at anytime for persistent or worsening symptoms. The appropriate anticipatory guidance and out-patient management, including indications for return to the emergency department, were explained at length to the patient and understood. Medication Reconcilliation Current Medication List: was personally reviewed by me Blood Pressure Screening Patient's blood pressure: Elevated blood pressure Blood pressure disposition: Elevated BP felt to be situational Impression Primary Impression: Sciatica Scribe Attestation The scribe's documentation has been prepared under my direction and personally reviewed by me in its entirety. I confirm that the note above accurately reflects all work, treatment, procedures, and medical decision making performed by me. Departure Information Dispostion Home / Self-Care Prescriptions Oxycodone Immediate Rel Tab (ROXICODONE IR) 5 Mg Tab 5 MG PO Q6H Y for Pain, #10 TAB Prov: Reid Alonzo, 09/29/17 Referrals Ronnie Vaughan M.D. (PCP) Forms HOME CARE DOCUMENTATION FORM, IMPORTANT VISIT INFORMATION, WORK / SCHOOL INSTRUCTIONS Patient Instructions ED Sciatica, My [facility] Additional Instructions Please follow up with your primary care doctor with in the next 24 hours. Any worsening of your symptoms, please return to the ED immediately. This includes any fevers greater than 100.4, worsening pain, chest pain, shortness breath, persistent nausea, vomiting, unable to eat or drink, weakness or numbness in the leg or any other concerning signs or symptoms from your standpoint. You were given medications during this visit that will inhibit your ability to drive, operate machinery and work. Please do NOT drive, operate machinery or work for the next 12hrs. You were also given a prescription for a narcotic. While taking this medication you should also not drive, operate machinery and or work. Problem Qualifiers Primary Impression: Sciatica Laterality: right Qualified Codes: M54.31 - Sciatica, right side
== END 2017-09-29 22:00 | disposition home or self-care (01) ==
LOC: EDBD 19:22 → C.EDA 19:23
DX: M54.31 Sciatica, right side (principal); I10 Essential (primary) hypertension; Z86.711 Personal history of pulmonary embolism; Z79.82 Long term (current) use of aspirin; Z79.84 Long term (current) use of oral hypoglycemic drugs; Z79.899 Other long term (current) drug therapy; Z88.2 Allergy status to sulfonamides; Z88.5 Allergy status to narcotic agent; Z91.041 Radiographic dye allergy status; Z91.048 Other nonmedicinal substance allergy status

== ENCOUNTER 2017-10-05 16:20 | Emergency (ER) | payer OTHER ==
[~2017-10-05] VITALS: Ht 165.1 cm; Wt 94.0 kg
[2017-10-05 16:20] VITALS: TEMP 36.8; Ht 165.1 cm; Wt 94.0 kg
[~2017-10-05 16:20] MED LIST changes: -CIPR-255 PO; +OXYC-737 PO
[2017-10-05] MEDS ORDERED: FENTANYL CITRATE INJ 50 MCG/1 ML 2 ML VIAL IV ONE ×2 (16:30→18:00)
[2017-10-05] MEDS ORDERED: ONDANSETRON INJ 2 MG/ML 2 ML VIAL IV STA (16:36)
--- NOTE | 2017-10-05 16:43 | EMERGENCY ROOM VISIT NOTE ---
History Report prepared by Danyel: Augusta Zuluaga Under the Supervision of: Dr. Niraj Weiss M.D. First contact with patient: 16:16 Stated Complaint: BACK PAIN History of Present Illness The patient is a 89 year old female who presents to the Emergency Room with complaints of intermittent, worsening lower back pain beginning last week. EMS reports the patient was seen in the ED 6 days ago, where she was diagnosed with sciatica. They state the patient did not have any of her daily medications today. The patient reports her pain is at a 7 or 8/10 when it comes, and notes it worsens with pressure. She states the pain is worst in R hip area and radiates down her R leg. The patient denies any L leg pain. She notes no recent falls and states she has never had these symptoms before last week. The patient reports she is currently nauseous and that she vomited once last week. She denies any difficulty breathing. Some urinary frequency. The patient reports she was given oxycodone last week, which relieved her symptoms, but she does not want to take that every day. She notes Tylenol does not improve her pain. The patient states she sees Dr. Vaughan as her PCP, but was unable to make an appointment due to her difficulty moving around secondary to pain. She reports she lives with her son, who cooks for her, and notes she is alone during the day while he is at work. Source of History: patient Onset: last week Position: back (lower) Symptom Intensity: 7 or 8/10 Timing: intermittent, worsening Modifying Factors (Relieving): narcotics, other (not relieved by Tylenol ) Associated Symptoms: + nausea, + vomiting (once) Note: Associated symptom: R leg pain Denies: L leg pain, difficulty breathing Review of Systems See HPI for pertinent positives and negatives. A total of ten systems were reviewed and were otherwise negative. Past Medical & Surgical Medical Problems: (1) Chest pain (2) Hypertension (3) Pulmonary emboli Surgical Problems: (1) History of appendectomy (2) History of hysterectomy (3) Hx of cholecystectomy Family History Omitted due to age. Social History Smoking Status: Never Smoker Smokeless Tobacco Use: No Alcohol Use: none Drug Use: none Marital Status: Housing Status: lives with family (son) Occupation Status: retired Current/Historical Medications Scheduled Aspirin (Aspirin Ec), 81 MG PO HS Ciprofloxacin Hcl (Cipro), 500 MG PO BID Enalapril Maleate (Enalapril Maleate), 40 MG PO DAILY Furosemide (Lasix), 40 MG PO DAILY Glyburide (Micronase), 5 MG PO BID Levothyroxine Sodium (Synthroid), 50 MCG PO DAILY Metformin Hcl (Glucophage), 1,000 MG PO BID Metoprolol Tartrate (Lopressor) (Lopressor), 25 MG PO BID Multivitamin (Multivitamin), 1 TAB PO DAILY Omeprazole (Prilosec), 40 MG PO BID Simvastatin (Zocor), 10 MG PO QPM Scheduled PRN Acetaminophen (Tylenol Arthritis Ext Rel), 650 MG PO TID PRN for Pain Oxycodone Ir (Roxicodone Ir), 5 MG PO Q6H PRN for Severe Pain Allergies Coded Allergies: Sulfamethoxazole w/Trimethoprim (Verified Allergy, Severe, RASH, 10/05/17) fever, vasculitic type rash Iodinated Diagnostic Agents (Verified Allergy, Unknown, ANAPHYLAXIS, ) Iodine (Verified Allergy, Unknown, HX ALLERGY TO IODINATED CONTRAST MEDIA , 10/05/17) Morphine (Verified Adverse Reaction, Unknown, N/V, 10/05/17) Physical Exam Vital Signs Date Time Temp Pulse Resp B/P (MAP) Pulse Ox O2 Delivery O2 Flow Rate FiO2 10/05/17 19:56 77 18 194/73 92 10/05/17 19:20 77 20 194/73 92 Room Air 10/05/17 17:23 91 20 172/67 92 Room Air 10/05/17 16:20 36.8 92 18 177/119 94 Room Air Physical Exam GENERAL: Awake, alert, intermittently in pain. HENT: Normocephalic, atraumatic. Oropharynx unremarkable. EYES: Normal conjunctiva. Sclera non-icteric. NECK: Supple. No nuchal rigidity. RESPIRATORY: Clear to auscultation. No wheezes. Normal respiratory effort. CARDIAC: Normal rate. Normal rhythm. Extremities warm and well perfused. GI: Soft, non-distended. No tenderness to palpation. No rebound or guarding. No masses. RECTAL: Deferred. MUSCULOSKELETAL: Atraumatic. Chest examination reveals no tenderness. There is no CVA tenderness to palpation. Lumbar midline and SI joint tenderness. Positive R straight leg raise. LOWER EXTREMITIES: Calves are equal size bilaterally and non-tender. Trace edema in bilateral LE, no skin changes or erythema of LEs. NEURO: Normal sensorium. No sensory or motor deficits noted. No facial droop. SKIN: Warm and dry. No rash or jaundice noted. Medical Decision & Procedures ER Provider Diagnostic Interpretation: Radiology results as stated below per my review and radiologist interpretation: ABDOMEN AND PELVIS CT WITHOUT CONTRAST CT DOSE: 1047.30 mGy.cm HISTORY: acute abdominal pain TECHNIQUE: Multiaxial CT images of the abdomen and pelvis were performed without contrast. A dose lowering technique was utilized adhering to the principles of ALARA. COMPARISON STUDY: Abdomen and pelvis CT 05/17/2017. FINDINGS: The lung bases are essentially clear. No pneumoperitoneum. No pneumatosis. No suspicious lytic or blastic osseous lesions. Anterior abdominal wall mesh is again noted. Small left iliopsoas bursa has decreased in size. Multilevel spinal stenosis within the lumbar spine is again noted. This remains unchanged. Cholecystectomy. The unenhanced liver, spleen, adrenal glands, and pancreas are unremarkable. No renal or ureteral calculi. No hydronephrosis. Mild bilateral perinephric edema. This is likely chronic. This remains unchanged. No retroperitoneal lymphadenopathy. The uterus is surgically absent. Normal bladder. Mild pelvic floor collapse. Suboptimal evaluation for bowel pathology due to the lack of intravenous and oral contrast. However, there is no definite bowel wall thickening or obstruction. Colonic diverticulosis. IMPRESSION: 1. No bowel wall thickening or obstruction. 2. Colonic diverticulosis. 3. No renal or ureteral calculi. No hydronephrosis. 4. Additional chronic findings as described above. Electronically signed by: Yonathan Cr M.D. 10/05/2017 5:44 PM Dictated Date/Time: 10/05/2017 5:06 PM Laboratory Results 10/05/17 16:45 Red Blood Count 4.19, Mean Corpuscular Volume 98.6, Mean Corpuscular Hemoglobin 32.2, Mean Corpuscular Hemoglobin Concent 32.7, Mean Platelet Volume 9.6, Neutrophils (%) (Auto) 65.4, Lymphocytes (%) (Auto) 21.2, Monocytes (%) (Auto) 10.2, Eosinophils (%) (Auto) 2.4, Basophils (%) (Auto) 0.4, Neutrophils # (Auto ) 5.35, Lymphocytes # (Auto) 1.73, Monocytes # (Auto) 0.83, Eosinophils # (Auto ) 0.20, Basophils # (Auto) 0.03 10/05/17 16:45 Test 10/05/17 16:45 10/05/17 18:35 White Blood Count 8.17 K/uL (4.8-10.8) Red Blood Count 4.19 M/uL (4.2-5.4) Hemoglobin 13.5 g/dL (12.0-16.0) Hematocrit 41.3 % (37-47) Mean Corpuscular Volume 98.6 fL (80-100) Mean Corpuscular Hemoglobin 32.2 pg (25-34) Mean Corpuscular Hemoglobin Concent 32.7 g/dl (32-36) Platelet Count 230 K/uL (130-400) Mean Platelet Volume 9.6 fL (7.4-10.4) Neutrophils (%) (Auto) 65.4 % Lymphocytes (%) (Auto) 21.2 % Monocytes (%) (Auto) 10.2 % Eosinophils (%) (Auto) 2.4 % Basophils (%) (Auto) 0.4 % Neutrophils # (Auto) 5.35 K/uL (1.4-6.5) Lymphocytes # (Auto) 1.73 K/uL (1.2-3.4) Monocytes # (Auto) 0.83 K/uL (0.11-0.59) Eosinophils # (Auto) 0.20 K/uL (0-0.5) Basophils # (Auto) 0.03 K/uL (0-0.2) RDW Standard Deviation 48.9 fL (36.4-46.3) RDW Coefficient of Variation 13.8 % (11.5-14.5) Immature Granulocyte % (Auto) 0.4 % Immature Granulocyte # (Auto) 0.03 K/uL (0.00-0.02) Anion Gap 7.0 mmol/L (3-11) Est Creatinine Clear Calc Drug Dose 43.2 ml/min Estimated GFR () 57.8 Estimated GFR (Non- 49.9 BUN/Creatinine Ratio 38.7 (10-20) Calcium Level 9.6 mg/dl (8.5-10.1) Total Bilirubin 0.9 mg/dl (0.2-1) Direct Bilirubin 0.2 mg/dl (0-0.2) Aspartate Amino Transf (AST/SGOT) 15 U/L (15-37) Alanine Aminotransferase (ALT/SGPT) 23 U/L (12-78) Alkaline Phosphatase 46 U/L (45-117) Total Protein 6.8 gm/dl (6.4-8.2) Albumin 3.8 gm/dl (3.4-5.0) Lipase 175 U/L (73-393) Urine Color YELLOW Urine Appearance CLEAR (CLEAR) Urine pH 5.0 (4.5-7.5) Urine Specific [place] 1.020 (1.000-1.030) Urine Protein 1+ (NEG) Urine Glucose (UA) NEG (NEG) Urine Ketones NEG (NEG) Urine Occult Blood NEG (NEG) Urine Nitrite NEG (NEG) Urine Bilirubin NEG (NEG) Urine Urobilinogen NEG (NEG) Urine Leukocyte Esterase TRACE (NEG) Urine WBC (Auto) 5-10 /hpf (0-5) Urine RBC (Auto) 0-4 /hpf (0-4) Urine Hyaline Casts (Auto) 0 /lpf (0-5) Urine Epithelial Cells (Auto) >30 /lpf (0-5) Urine Bacteria (Auto) 4+ (NEG) Laboratory results reviewed by me Medications Administered Medications (Trade) Dose Ordered Sig/Sergio Route Start Time Stop Time Status Last Admin Dose Admin Fentanyl Citrate (Fentanyl Inj) 25 mcg NOW ONCE IV 10/05/17 16:30 10/05/17 16:33 DC 10/05/17 16:46 25 MCG Ondansetron HCl (Zofran Inj) 4 mg NOW STAT IV 10/05/17 16:36 10/05/17 16:37 DC 10/05/17 16:45 4 MG Furosemide (Lasix Tab) 40 mg NOW ONCE PO 10/05/17 17:00 10/05/17 17:01 DC 10/05/17 17:20 40 MG Metoprolol Tartrate (Lopressor Tab) 50 mg STK-MED ONCE .ROUTE 10/05/17 17:14 10/05/17 17:15 DC 10/05/17 17:20 25 MG Ketorolac Tromethamine (Toradol Inj) 15 mg NOW STAT IV 10/05/17 17:56 10/05/17 17:57 DC 10/05/17 18:30 15 MG Fentanyl Citrate (Fentanyl Inj) 50 mcg NOW ONCE IV 10/05/17 18:00 10/05/17 18:01 DC 10/05/17 18:31 50 MCG Metformin HCl (Glucophage Tab) 1,000 mg ONE STAT PO 10/05/17 18:18 10/05/17 18:19 DC 10/05/17 18:35 1,000 MG Ciprofloxacin (Cipro Tab) 500 mg NOW STAT PO 10/05/17 19:12 10/05/17 19:13 DC 10/05/17 19:36 500 MG ED Course 1621: The patient was evaluated in room C5. A complete history and physical exam was performed. 1630: Ordered Fentanyl Inj 25 mcg IV. 1636: Ordered Zofran Inj 4mg IV. 1647: Ordered Lopressor Tab 25 g PO. 1700: Ordered Lasix Tab 40 mg PO. 1756: Ordered Toradol Inj 15 mg IV. 1800: Ordered Fentanyl Inj 50 mcg IV. 1817: Ordered Metformin HCl 1000 mg PO. 1911: Ordered Cipro Tab 500 mg PO. Medical Decision Etiologies such as musculoskeletal, disc herniation, fracture, aortic disease, metastatic disease, cord compression, discitis, infection, renal colic, gastrointestinal, acute exacerbation of chronic back pain, sciatica, cauda equina, as well as others were entertained. Patient is a 89 year female presenting with continued lower back pain radiating to the right leg. Seen here 6 days ago. Workup done including ultrasound and CT of lumbar spine. No falls. Pain improved with oxycodone but does not take this long-term and stopped and this pain return. Tylenol without improvement at home. Unable to see her primary care physician so came back as she is having difficulty ambulate at home and taking care of herself. Benign abdomen. Intermittently some nausea. States her son is at work during the day she is at home alone and caring for herself or taking her medicines. Did not take her medicines today because this. Patient states a distant history nephrolithiasis. CT abdomen pelvis without contrast completed to exclude other occult intra-abdominal pathology or kidney stone. No acute findings. Urinalysis were completed to exclude urine infection. Recently had a Doppler lower extremity and without change of symptoms and do not believe repeat would be helpful at this point. No trauma history and do not believe imaging of the right lower extremity is indicated. Doubt acute intra-abdominal pathology such as appendicitis or perforation. Do not believe this is cardiac or pulmonary nature. Doubt cauda equina. Treated symptomatically for pain. Given home dose of Lasix, metformin, and metoprolol that she did not take it today. Evidence of a possible UTI and will start on Cipro based on prior sensitivities. Urine culture sent. Do not believe this is acute pyelonephritis. Believe this is likely chronic back pain. Understand the patient's hesitancy using pain medication long-term, long-term pain management is likely needed. Given her difficulty following with the primary care physician will make efforts to try to help facilitate this with case management. PDP was queried. Believe that another short course of opioid analgesia until further outpatient follow-up is appropriate. She is stable for discharge. Discussed return criteria. Medication Reconcilliation Current Medication List: was personally reviewed by me Blood Pressure Screening Patient's blood pressure: Elevated blood pressure Blood pressure disposition: Referred to PCP Impression Primary Impression: Sciatica Additional Impressions: UTI (urinary tract infection) Low back pain Scribe Attestation The scribe's documentation has been prepared under my direction and personally reviewed by me in its entirety. I confirm that the note above accurately reflects all work, treatment, procedures, and medical decision making performed by me. Departure Information Dispostion Home / Self-Care Prescriptions Oxycodone Ir (Roxicodone Ir) 5 Mg Tab 5 MG PO Q6H Y for Severe Pain for 3 Days, #12 TAB Prov: Niraj Weiss M.D. 10/05/17 Ciprofloxacin Hcl (CIPRO) 500 Mg Tab 500 MG PO BID for 7 Days, #14 TAB 0 Refills Prov: Niraj Weiss M.D. 10/05/17 Forms HOME CARE DOCUMENTATION FORM, IMPORTANT VISIT INFORMATION Additional Instructions Would recommend close outpatient follow-up in the next 3-5 days to discuss long- term pain management for her lower back pain. Would utilize the pain medicine prescribed to help with her symptoms. Utilize the ciprofloxacin to treat possible UTI that you have. If you develop new or concerning symptoms at any point please feel free to return here for reevaluation. Please continue to utilize Tylenol at home in addition to the prescribed pain medication. Please be careful to avoid falls. Would recommend rest and no overexertion and also spending time outside of your recliner during the day. Problem Qualifiers Primary Impression: Sciatica Laterality: right Qualified Codes: M54.31 - Sciatica, right side Additional Impressions: UTI (urinary tract infection) Urinary tract infection type: acute cystitis Hematuria presence: without hematuria Qualified Codes: N30.00 - Acute cystitis without hematuria Low back pain Chronicity: chronic Back pain laterality: bilateral Sciatica presence: with sciatica Sciatica laterality: sciatica of right side Qualified Codes: M54.41 - Lumbago with sciatica, right side; G89.29 - Other chronic pain
[2017-10-05] MEDS ORDERED: METOPROLOL TARTRATE 25 MG TAB PO STA (16:47)
[2017-10-05] MEDS ORDERED: FUROSEMIDE 40 MG TAB PO ONE (17:00)
[2017-10-05 17:05] LABS: BASO % 0.4 %; BASO ABS # 0.03 K/uL (0-0.2); EOS % 2.4 %; HEMATOCRIT 41.3 % (37-47); HEMOGLOBIN 13.5 g/dL (12.0-16.0); IG# 0.03 K/uL (0.00-0.02); LYMPH % 21.2 %; LYMPH ABS # 1.73 K/uL (1.2-3.4); MEAN CELL VOLUME 98.6 fL (80-100); MEAN CORPUSCULAR HEMOGLOBIN 32.2 pg (25-34); MEAN CORPUSCULAR HGB CONC 32.7 g/dl (32-36); MEAN PLATELET VOLUME 9.6 fL (7.4-10.4); MONO % 10.2 %; MONO ABS # 0.83 K/uL (0.11-0.59); NEUT % 65.4 %; NEUT ABS # 5.35 K/uL (1.4-6.5); PLATELET COUNT 230 K/uL (130-400); RED CELL DISTRIBUTION WIDTH CV 13.8 % (11.5-14.5); RED CELL DISTRIBUTION WIDTH SD 48.9 fL (36.4-46.3); WHITE BLOOD COUNT 8.17 K/uL (4.8-10.8)
[2017-10-05] MEDS ORDERED: METOPROLOL TARTRATE 50 MG TAB ONE (17:14)
[2017-10-05 17:24] LABS: ALBUMIN 3.8 gm/dl (3.4-5.0); CALCIUM 9.6 mg/dl (8.5-10.1); POTASSIUM 5.1 mmol/L (3.5-5.1); TOTAL PROTEIN 6.8 gm/dl (6.4-8.2)
--- NOTE | 2017-10-05 17:45 | DIAGNOSTIC IMAGING REPORT ---
ABDOMEN AND PELVIS CT WITHOUT CONTRAST CT DOSE: 1047.30 mGy.cm HISTORY: acute abdominal pain TECHNIQUE: Multiaxial CT images of the abdomen and pelvis were performed without contrast. A dose lowering technique was utilized adhering to the principles of ALARA. COMPARISON STUDY: Abdomen and pelvis CT 05/17/2017. FINDINGS: The lung bases are essentially clear. No pneumoperitoneum. No pneumatosis. No suspicious lytic or blastic osseous lesions. Anterior abdominal wall mesh is again noted. Small left iliopsoas bursa has decreased in size. Multilevel spinal stenosis within the lumbar spine is again noted. This remains unchanged. Cholecystectomy. The unenhanced liver, spleen, adrenal glands, and pancreas are unremarkable. No renal or ureteral calculi. No hydronephrosis. Mild bilateral perinephric edema. This is likely chronic. This remains unchanged. No retroperitoneal lymphadenopathy. The uterus is surgically absent. Normal bladder. Mild pelvic floor collapse. Suboptimal evaluation for bowel pathology due to the lack of intravenous and oral contrast. However, there is no definite bowel wall thickening or obstruction. Colonic diverticulosis. IMPRESSION: 1. No bowel wall thickening or obstruction. 2. Colonic diverticulosis. 3. No renal or ureteral calculi. No hydronephrosis. 4. Additional chronic findings as described above. Electronically signed by: Yonathan Cr M.D. 10/05/2017 5:44 PM Dictated Date/Time: 10/05/2017 5:06 PM
[2017-10-05] MEDS ORDERED: KETOROLAC TROMETHAMINE 30 MG/ML VIAL IV STA (17:56)
[2017-10-05] MEDS ORDERED: METFORMIN HCL 500 MG TAB PO STA (18:18)
[2017-10-05] MEDS ORDERED: CIPROFLOXACIN 500 MG TAB PO STA (19:12)
[2017-10-05] MEDS ORDERED: CIPR-255 PO (19:19)
[2017-10-05] MEDS ORDERED: OXYC-90 PO (19:19)
[2017-10-05 19:56] VITALS: BP 194/73; PULSE 77; O2SAT 92
--- NOTE | 2017-10-07 13:13 | Pharmacy Progress Note ---
ED Pharmacist Culture FollowUp Date of Service: Oct 07, 2017. Patient was sent home with a prescription for Ciprofloxacin 500 mg BID x 7 days , which should cover the E. coli growing from the patient's urine culture.
== END 2017-10-05 19:59 | disposition home or self-care (01) ==
LOC: EDBD 16:20 → C.EDC 16:21
DX: M54.41 Lumbago with sciatica, right side (principal); N39.0 Urinary tract infection, site not specified; G89.29 Other chronic pain; I10 Essential (primary) hypertension; Z86.711 Personal history of pulmonary embolism; Z90.49 Acquired absence of other specified parts of digestive tract; Z90.710 Acquired absence of both cervix and uterus; Z79.82 Long term (current) use of aspirin; Z79.84 Long term (current) use of oral hypoglycemic drugs; Z79.899 Other long term (current) drug therapy; Z88.2 Allergy status to sulfonamides; Z88.5 Allergy status to narcotic agent; Z91.041 Radiographic dye allergy status